=== PATIENT | female | born 2005 | race Hispanic/Latino ===

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

== ENCOUNTER 2024-03-26 20:56 | Emergency (ER) | payer OTHER, SELFPAY ==
--- OUTSIDE RECORDS SUMMARY | 2024-03-26 20:59 | XMS REPORT | Continuity of Care Document ---
Author Name Unknown Address [address] [place] [address] [facility] thconnect Address [address] [place] [address] Care Team Providers Care Scheduling Specialist Name Role Phone VIGIL, QUAN Krishnamurthy Primary Care Physician UnavailANDRADE Montez Attending Clinician Unavail able [facility] Clinician Unavailable Andrade Caldwell DO Attending Clinician Lab, Adc Fam Pob I Attending Clinician Unavailab Daisy Nix PA-C Attending Clinician DAISY HUBBARD Attending Clinician Unavailable Payers Payer Name Policy Type Policy Number Effective Date Expirati on Date Source Allergies, Adverse Reactions, Alerts Allergy Name Allergy Type Status Severity Reaction(s) Onset Date Inactive Date Treating Clinician Comments Source NO KNOWN ALLERGIE S Drug Class Active [facility] Social History Social Habit Start Date Stop Date Quantity Comments Source Sex Assigned At 2005 00:00:00 2005 00:00:00 [facility] Smoking Status Start Date Stop Date Source Unknown if ever smoked [facility] Vital Signs Vital Name Observation Time Observation Value Comments S leslie Heart rate 2020-04-04 21:00:00 97 /min [facility] Respiratory rate 2020-04-04 21:00:00 16 /min [facility] Oxygen saturation in Arterial blood by Pulse oximetry 2020-04-04 21:00:00 98 /min [facility] Procedures Procedure Date / Time Performed Performing Clinicia n Source SARS-COV-2 COVID-19 VACCINE,0.3ML,IM (PFIZER) 2021-01-15 22:09:44 Doctor Unassigned, [place] [facility] Encounters Start Date/Time End Date/Time Encounter Type Admission Type Attending Clinicians Care Facility Care Department Encounter ID Source 2023-06-23 17:01:01 2023-06-23 17:01:01 Outpatient [facility] [id number] Jaron Perez 2023-03-30 16:33:19 2023-03-30 16:33:19 Outpatient [facility] [id number] Jaron Perez 2021-01-15 13:35:00 2021-01-16 09:36:15 Outpatient Peng CALDWELL [facility] [id number] [facility] 2021-01-15 13:35:00 2021-01-15 13:40:00 Imm/Inj Visit Immunizatio Pina duran [facility] [employer] Andrade Caldwell [facility] Building 1..[id number] [facility] 2021-01-15 13:35:00 2021-01-15 13:35:00 Outpatient Peng CALDWELL [facility] [id number] [facility] 2020-12-25 16:20:00 2020-12-25 16:48:16 Outpatient Peng CALDWELL [facility] [id number] [facility] 2020-12-25 16:20:00 2020-12-25 16:20:00 [facility] [id number] [facility] 2020-04-04 18:12:33 2020-04-04 18:32:33 Laboratory Only Lab, [facility] [address] ..[id number] [facility] 2020-04-04 17:40:00 2020-04-04 17:40:00 Outpatient DAISY BOUDREAUX [facility] [id number] [facility]
[2024-03-26] MEDS ORDERED: ONDANSETRON 4 MG (ODT) TAB ONE (21:49)
[2024-03-26] MEDS ORDERED: ACETAMINOPHEN 500 MG TAB ONE (21:49)
[2024-03-27] MEDS ORDERED: DIPHENHYDRAMINE 50 MG/ML VIAL ONE (00:43)
[2024-03-27] MEDS ORDERED: METOCLOPRAMIDE 10 MG/2mL INJ ONE (00:43)
[2024-03-27] MEDS ORDERED: ONDANSETRON 4 MG/2 ML VIAL ONE (00:43)
[2024-03-27] MEDS ORDERED: FAMOTIDINE 20 MG/2 ML VIAL IV ONE (00:44)
[2024-03-27] MEDS ORDERED: NA CHLORIDE 0.9% 1,000 ML ONE (00:44)
[2024-03-27 00:59] LABS: Absolute Basophils 0.1 K/uL (0-0.5); Absolute Eosinophils 0.2 K/uL (0-0.5); Absolute Lymphocytes (CBC) 4.5 K/uL (0.7-4.9); Absolute Monocytes 0.6 K/uL (0.1-1.3); Absolute Neutrophil 3.7 K/uL (1.8-8.0); Basophils % 0.6 % (0-1.3); Eosinophils % 2.2 % (0-4.4); Hematocrit 38.7 % (36.0-45.0); Hemoglobin 12.7 g/dL (12.0-15.0); Lymphocytes % 49.5 % (15.3-44.8); MCH 27.5 pg (27.0-35.0); MCHC 32.9 g/dL (32.0-36.0); MCV 83.7 fL (80-100); MPV 7.6 fL (7.6-11.3); Neutrophils % 40.7 % (41.7-73.7); Nucleated Red Blood Cells % 0.1 % (0-0); Platelets 389 thou/uL (152-406); RBC Red Blood Cell Count 4.62 M/uL (3.86-4.86)
[2024-03-27 01:14] LABS: Albumin 4.2 g/dL (3.4-5.0); Anion Gap 9.6 mEq/L (5.0-15.0); Bilirubin Total 0.3 mg/dL (0.2-1.0); Globulin 4.3 g/dL (2.3-3.5); Potassium 3.6 mEq/L (3.5-5.1); Protein, Total 8.5 g/dL (6.4-8.2)
--- NOTE | 2024-03-27 01:47 | ER ---
Nurse's Notes [facility] Name: Barbie Quintero Age: 18 yrs Sex: Female : 2005 Arrival Date: 03/26/2024 Time: 20:56 Bed 5 Private MD: Diagnosis: Contusion of unspecified part of head, initial encounter;Concussion without loss of consciousness;Nausea with vomiting, unspecified Presentation: 03/26 21:43 Chief complaint: Patient states: Fell and hit her head on the corner of a metal chair cm10 around 12 today. Pt denies any LOC. Pt states that she has had 3 episodes of vomiting since. Coronavirus screen: Client denies travel out of the [place] in the last 14 days. Ebola Screen: Patient denies travel to an Ebola-affected area in the 21 days before illness onset. No symptoms or risks identified at this time. Initial Sepsis Screen: Does the patient meet any 2 criteria? No. Patient's initial sepsis screen is negative. Initial Sepsis Screen: Does the patient have a suspected source of infection? No. Patient's initial sepsis screen is negative. Risk Assessment: Do you want to hurt yourself or someone else? Patient reports no desire to harm self or others. Onset of symptoms was March 26, 2024. 21:43 Method Of Arrival: Ambulatory cm10 21:43 Acuity: WAN 3 cm10 Triage Assessment: 21:46 General: Appears in no apparent distress. comfortable, Behavior is calm, cooperative. cm10 Pain: Complains of pain in head. Neuro: No deficits noted. Level of Consciousness is awake, alert, obeys commands, Oriented to person, place, time, situation, Appropriate for age Reports headache. Respiratory: No deficits noted. Airway is patent Respiratory effort is even, unlabored, Respiratory pattern is regular, symmetrical. GI: Reports nausea, vomiting. Historical: - Allergies: 21:45 NKA; cm10 - PMHx: 21:45 Asthma; cm10 - PSHx: 21:45 None; cm10 - Immunization history:: Adult Immunizations up to date. - Infectious Disease History:: Denies. - Social history:: Smoking status: Patient/guardian denies using tobacco. Screenin/05 00:50 [facility] ED Fall Risk Assessment (Adult) History of falling in the last 3 months, lg3 including since admission Yes- single mechanical fall (1 pt) Confusion or Disorientation No (0 pts) Intoxicated or Sedated No (0 pts) Impaired Gait No (0 pts) Mobility Assist Device Used No (0 pt) Altered Elimination No (0 pt) Score/Fall Risk Level 0 - 2 = Low Risk Oriented to surroundings, Maintained a safe environment, Educated pt \T\ family on fall prevention, incl call for assistance when getting out of bed, Assessed \T\ reinforced patient's understanding of fall precautions. Abuse screen: Denies threats or abuse. Denies injuries from another. Nutritional screening: No deficits noted. Tuberculosis screening: No symptoms or risk factors identified. Assessment: 00:50 General: Appears in no apparent distress. comfortable, Behavior is calm, cooperative. lg3 Pain: Complains of pain in head Pain does not radiate. Pain currently is 5 out of 10 on a pain scale. Also complains of nausea. Neuro: No deficits noted. Felder Agitation-Sedation Scale (RASS): 0 - Alert and Calm Level of Consciousness is awake, alert, obeys commands, Oriented to person, place, time, situation, Reports headache. Cardiovascular: No deficits noted. Denies chest pain, shortness of breath, Capillary refill < 3 seconds Clubbing of nail beds is absent JVD is absent Patient's skin is warm and dry. Respiratory: No deficits noted. Airway is patent Respiratory effort is even, unlabored, Respiratory pattern is regular, symmetrical. GI: No deficits noted. Abdomen is round non-distended, Reports nausea, vomiting. : No deficits noted. No signs and/or symptoms were reported regarding the genitourinary system. EENT: No deficits noted. No signs and/or symptoms were reported regarding the EENT system. Derm: No deficits noted. No signs and/or symptoms reported regarding the dermatologic system. Skin is intact, is healthy with good turgor, Skin is dry, Skin is normal, Skin temperature is warm. Musculoskeletal: No deficits noted. No signs and/or symptoms reported regarding the musculoskeletal system. Circulation, motion, and sensation intact. Range of motion: intact in all extremities. 01:23 Reassessment: Patient appears in no apparent distress at this time. Patient and/or lg3 family updated on plan of care and expected duration. Pain level reassessed. Patient is alert, oriented x 3, equal unlabored respirations, skin warm/dry/pink. Patient states feeling better. Patient states symptoms have improved. Vital Signs: 03/26 21:43 BP 131 / 88; Pulse 92; Resp 18; Temp 97.8(TE); Pulse Ox 99% ; Weight 81.65 kg; Height 5 cm10 ft. 1 in. ; Pain 7/10; 03/27 01:23 BP 127 / 77; Pulse 85; Resp 16 S; Pulse Ox 99% on R/A; lg3 03/26 21:43 Body Mass Index 34.01 (81.65 kg, 154.94 cm) cm10 03/26 21:43 Pain Scale: Adult cm10 ED Course: 03/26 21:00 Patient arrived in ED. gm2 21:09 Kevin Ferrara PA is PHCP. cp 21:09 Gareth Foster MD is Attending Physician. cp 21:45 Triage completed. cm10 21:46 Arm band placed on right wrist. Patient placed in waiting room. cm10 22:34 CT Head C Spine In Process Unspecified. EDMS 03/27 00:50 Virginie Abbasi RN is Primary Nurse. lg3 00:50 Patient has correct armband on for positive identification. Placed in gown. Bed in low lg3 position. Call light in reach. Side rails up X 1. Client placed on continuous cardiac and pulse oximetry monitoring. NIBP monitoring applied. Door closed. Noise minimized. Warm blanket given. Pillow given. Family accompanied patient. 00:50 Initial lab(s) drawn, by ED staff, sent to lab. Urine collected: clean catch specimen, lg3 clear. Inserted saline lock: 20 gauge in left antecubital area, using aseptic technique. Blood collected. Flushed with 10 mL NS. 00:54 CBC with Diff Sent. lg3 00:54 CMP Sent. lg3 00:54 Lipase Sent. lg3 00:54 Test, Urine Sent. lg3 00:54 Urinalysis w/ reflexes Sent. lg3 01:46 Hernando Zarate MD is Referral Physician. cp 01:50 No provider procedures requiring assistance completed. IV discontinued, intact, lg3 bleeding controlled, No redness/swelling at site. Pressure dressing applied. Administered Medications: 03/26 21:53 Drug: Ondansetron PO 4 mg PO once Route: PO; cm10 03/27 00:54 Follow up: Response: No adverse reaction; No change in condition lg3 03/26 21:53 Drug: Acetaminophen PO 1000 mg PO once Route: PO; cm10 03/27 00:54 Follow up: Response: No adverse reaction lg3 00:53 Drug: Famotidine IVP 20 mg IVP once; dilute with 10 mL 0.9% NaCl; give over 2 minutes lg3 Route: IVP; Site: left antecubital; 01:49 Follow up: Response: No adverse reaction; Marked relief of symptoms lg3 00:53 Drug: NS 0.9% IV 1000 ml IV at 1 bolus Per protocol; to be given as a bolus over 60 lg3 minutes Route: IV; Rate: 1 bolus; Site: left antecubital; 01:49 Follow up: Response: No adverse reaction; IV Status: Completed infusion; IV Intake: lg3 1000ml 00:53 Drug: metoCLOPramide IVP 10 mg IVP once; over 1 to 2 minutes Route: IVP; Site: left lg3 antecubital; 01:49 Follow up: Response: No adverse reaction; Marked relief of symptoms lg3 00:53 Drug: diphenhydrAMINE IVP 25 mg IVP once Route: IVP; Site: left antecubital; lg3 01:49 Follow up: Response: No adverse reaction; Marked relief of symptoms lg3 00:53 Drug: Ondansetron IVP 4 mg IVP once; over 2 minutes Route: IVP; Site: left antecubital; lg3 01:49 Follow up: Response: No adverse reaction; Marked relief of symptoms lg3 Medication: 00:50 VIS not applicable for this client. lg3 Intake: 01:49 IV: 1000ml; Total: 1000ml. lg3 Outcome: 01:47 Discharge ordered by . cp 01:50 Discharged to home via wheelchair, with family, lg3 01:50 Condition: stable 01:50 Discharge instructions given to patient, Instructed on discharge instructions, follow up and referral plans. medication usage, Demonstrated understanding of instructions, follow-up care, medications, Prescriptions given X 1, 01:50 Patient left the ED. lg3 Signatures: Dispatcher [employer] EDMS Kevin Ferrara PA PA cp Able, Lacie, RN RN 3 Yaquelin Vences RN RN 10 Olivia Alfaro [facility]
--- NOTE | 2024-03-27 01:47 | EDPHYS ---
Physician Documentation [facility] Name: Barbie Quintero Age: 18 yrs Sex: Female : 2005 Arrival Date: 03/26/2024 Time: 20:56 Bed 5 Private MD: ED Physician Gareth Foster HPI: 03/26 21:55 This 18 yrs old Female presents to ER via Ambulatory with complaints of Fall cp Injury, Headache, Nausea/Vomiting. 21:55 Details of fall: The patient fell from an upright position, while attempting to sit in cp chair, patient reports falling back and striking head against metal chair. 21:55 Onset: The symptoms/episode began/occurred this afternoon. Associated injuries: The cp patient sustained injury to the head, contusion, pain, tenderness, neck injury, pain. Patient reports headache and vomiting 3 times since injury. Historical: - Allergies: 21:45 NKA; cm10 - PMHx: 21:45 Asthma; cm10 - PSHx: 21:45 None; cm10 - Immunization history:: Adult Immunizations up to date. - Infectious Disease History:: Denies. - Social history:: Smoking status: Patient/guardian denies using tobacco. ROS: 22:00 Cardiovascular: Negative for chest pain, palpitations, cp 22:00 Eyes: Negative for injury, pain, redness, and discharge, cp 22:00 Constitutional: Negative for body aches, chills, fever, poor PO intake, 22:00 Neck: Positive for tenderness, 22:00 Abdomen/GI: Positive for nausea and vomiting, Negative for abdominal pain, 22:00 Neuro: Positive for headache, 22:00 All other systems are negative, Exam: 22:05 Constitutional: The patient appears in no acute distress, alert, awake, non-toxic, well cp developed, well nourished, 22:05 Head/face: Noted is tenderness, that is moderate, of the left occipital area and left cp base of the skull, 22:05 Eyes: Periorbital structures: appear normal, Pupils: equal, round, and reactive to light and accomodation, Extraocular movements: intact throughout, Conjunctiva: normal, no exudate, no injection, Sclera: no appreciated abnormality, Lids and lashes: appear normal, bilaterally, 22:05 ENT: External ear(s): are unremarkable, Nose: is normal, Mouth: Lips: moist, Oral mucosa: moist, Posterior pharynx: Airway: no evidence of obstruction, patent, 22:05 Neck: C-spine: vertebral tenderness, that is mild, appreciated at C1 and C2, crepitus, is not appreciated, ROM/movement: limited range of motion, is not appreciated, Meningeal signs: are not present, nuchal rigidity, is not appreciated, 22:05 Chest/axilla: Inspection: normal, 22:05 Cardiovascular: Rate: normal, Rhythm: regular, 22:05 Respiratory: the patient does not display signs of respiratory distress, Respirations: normal, no use of accessory muscles, no retractions, labored breathing, is not present, Breath sounds: are clear throughout, no decreased breath sounds, no stridor, no wheezing, 22:05 Abdomen/GI: Inspection: abdomen appears normal, Palpation: abdomen is soft and non-tender, in all quadrants, 22:05 Back: pain, is absent, ROM is normal, 22:05 Neuro: Orientation: to person, place \T\ time. Mentation: is normal, Motor: moves all fours, strength is normal, Sensation: is normal, Gait: is steady, Vital Signs: 21:43 BP 131 / 88; Pulse 92; Resp 18; Temp 97.8(TE); Pulse Ox 99% ; Weight 81.65 kg; Height 5 cm10 ft. 1 in. ; Pain 7/10; 03/27 01:23 BP 127 / 77; Pulse 85; Resp 16 S; Pulse Ox 99% on R/A; lg3 03/26 21:43 Body Mass Index 34.01 (81.65 kg, 154.94 cm) cm10 03/26 21:43 Pain Scale: Adult cm10 MDM: 03/26 21:47 Medical Screening Exam initiated cp 03/27 01:46 Data reviewed: vital signs, nurses notes, lab test result(s), radiologic studies, CT cp scan, and as a result, I will discharge patient. 01:46 Differential diagnosis: closed head injury, contusion, fracture, concussion. I cp considered the following discharge prescriptions or medication management in the emergency department Medications were administered in the Emergency Department. See MAR. Counseling: I had a detailed discussion with the patient and/or guardian regarding the historical points, exam findings, and any diagnostic results supporting the discharge/admit diagnosis, lab results, radiology results, to return to the emergency department if symptoms worsen or persist or if there are any questions or concerns that arise at home. Response to treatment: the patient's symptoms have markedly improved after treatment, and as a result, I will discharge patient. Special discussion: Based on the patient's history, exam and DX evaluation, there is no indication for emergent intervention or inpatient TX. It is understood by the patient/guardian that if the SXs persist or worsen they need to return immediately for re-evaluation. 03/27 00:24 Order name: CBC with Diff; Complete Time: :44 cp 03/27 01:44 Interpretation: Normal except: RDW 16.0; BENJAMIN% 40.7; LYM% 49.5. cp 03/27 00:24 Order name: CMP; Complete Time: :44 cp 03/27 01:44 Interpretation: Reviewed. cp 03/27 00:24 Order name: Lipase; Complete Time: :44 cp 03/27 00:24 Order name: Test, Urine cp 03/27 00:24 Order name: Urinalysis w/ reflexes cp 11 21:53 Order name: CT Head C Spine cp 03/26 23:50 Order name: PO challenge; Complete Time: 01:18 cp 03/27 00:24 Order name: IV Saline Lock; Complete Time: 00:53 cp 03/27 00:24 Order name: Labs collected and sent; Complete Time: 00:53 cp Administered Medications: 03/26 21:53 Drug: Ondansetron PO 4 mg PO once Route: PO; [facility] 03/27 00:54 Follow up: Response: No adverse reaction; No change in condition lg3 03/26 21:53 Drug: Acetaminophen PO 1000 mg PO once Route: PO; 10 03/27 00:54 Follow up: Response: No adverse reaction lg3 00:53 Drug: Famotidine IVP 20 mg IVP once; dilute with 10 mL 0.9% NaCl; give over 2 minutes lg3 Route: IVP; Site: left antecubital; 01:49 Follow up: Response: No adverse reaction; Marked relief of symptoms lg3 00:53 Drug: NS 0.9% IV 1000 ml IV at 1 bolus Per protocol; to be given as a bolus over 60 lg3 minutes Route: IV; Rate: 1 bolus; Site: left antecubital; 01:49 Follow up: Response: No adverse reaction; IV Status: Completed infusion; IV Intake: lg3 1000ml 00:53 Drug: metoCLOPramide IVP 10 mg IVP once; over 1 to 2 minutes Route: IVP; Site: left lg3 antecubital; 01:49 Follow up: Response: No adverse reaction; Marked relief of symptoms lg3 00:53 Drug: diphenhydrAMINE IVP 25 mg IVP once Route: IVP; Site: left antecubital; lg3 01:49 Follow up: Response: No adverse reaction; Marked relief of symptoms lg3 00:53 Drug: Ondansetron IVP 4 mg IVP once; over 2 minutes Route: IVP; Site: left antecubital; lg3 01:49 Follow up: Response: No adverse reaction; Marked relief of symptoms lg3 Disposition: 19:27 Chart complete. cp 03/28 00:35 Co-signature as Attending Physician, Gareth Foster MD I agree with the assessment sp4 and plan of care. I reviewed the patient's care provided by the Advanced Practice Provider and agree with the diagnosis and treatment plan. Disposition Summary: 03/27/24 01:47 Discharge Ordered Notes: Location: Home cp Problem: new cp Symptoms: have improved cp Condition: Stable cp Diagnosis - Contusion of unspecified part of head, initial encounter cp - Concussion without loss of consciousness cp - Nausea with vomiting, unspecified cp Followup: cp - With: Hernando Zarate MD - When: 1 week - Reason: symptoms continue Discharge Instructions: - Discharge Summary Sheet cp - Concussion, Adult cp - Facial or Scalp Contusion cp - Head Injury, Adult cp - Nausea and Vomiting, Adult cp Forms: - Medication Reconciliation Form cp - Antibiotic Education cp - Prescription Opioid Use cp - Patient Portal Instructions cp - Leadership Thank You Letter cp - Work release form vc1 Prescriptions: - ondansetron 8 mg Oral Tablet,disintegrating - take 1 tablet ORAL route every 12 hours; 15 tablet; Refills: 0, Product cp Selection Permitted Signatures: Dispatcher [employer] EDMS Kevin Ferrara PA PA cp Able, Lacie, RN RN lg3 Gareth Foster MD MD sp4 Yaquelin Vences RN RN cm10 Corrections: (The following items were deleted from the chart) 03/26 21:53 21:53 Head C Spine MPR Wo Con+CT.RAD.BRZ ordered. EDMS EDMS 03/27 00:25 00:25 CBC+H.LAB.BRZ ordered. EDMS EDMS 00: 00:25 COMPREHENSIVE METABOLIC PANEL+C.LAB.BRZ ordered. EDMS EDMS 00: 00:25 LIPASE+C.LAB.BRZ ordered. EDMS EDMS 00: 00:25 Test, Urine+UC.LAB.BRZ ordered. EDMS EDMS 00:25 00:25 Urinalysis+U.LAB.BRZ ordered. EDMS EDMS 19:17 19:17 This 18 yrs old Female presents to ER via Ambulatory with complaints of cp Fall Injury, Headache, Nausea/Vomiting. cp
[2024-03-27 01:51] LABS: Specific Gravity > 1.030 (1.005-1.030); Sqamous Epithelial <5 /HPF (None Seen); Urine Bacteria <20 /HPF (<20); Urine Bilirubin NEGATIVE (Negative); Urine Blood 2+ (Negative); Urine Clarity Turbid (Clear); Urine Color Yellow (Yellow); Urine Culture Reflex Order NOT NEEDED; Urine Glucose NEGATIVE (Negative); Urine Ketones TRACE (Negative); Urine Microscopic Reflex YN ORDER UMIC; Urine Mucus 3+ /HPF (None Seen); Urine Nitrite NEGATIVE (Negative); Urine Protein 1+ (Negative); Urine Urobilinogen Normal (Normal); Urine WBC <5 /HPF (<5); Urine pH 6.5 (5.0-7.0)
[2024-03-27 01:52] LABS: Specific Gravity > 1.030 (1.005-1.030)
[2024-03-27 03:02] VITALS: TEMP 97.8; O2SAT 99
[2024-03-27 03:03] VITALS: BP 127/77
--- NOTE | 2024-03-27 03:44 | RAD REPORT ---
EXAM DESCRIPTION: CT HEAD AND CERVICAL SPINE WITHOUT CONTRAST CLINICAL HISTORY: Vomiting and headache. COMPARISON: None Available TECHNIQUE: Contiguous axial images of head and cervical spine were obtained followed by reconstruction images. T his exam was performed according to our departmental dose-optimization program, which includes automated exposure control, adjustment of the mA and/or kV according to patient size and/or use of it erative reconstruction technique. FINDINGS: There is no acute intracranial hemorrhage. Ventricular system is within normal limits. Several images are degraded by artifact. There is no skull fracture. Prevertebral soft tissues are within normal limits. There is no acute fracture or subluxation of the cervical spine. IMPRESSION: 1. No acute intracranial abnormalities. 2. No acute fracture or subluxation of the cervical spine. Electronically signed by: David Jones MD 03/27/2024 12:53 AM [facility] Due to temporary technical issues with the [employer] reporting system, reports are being iqra d by the in-house radiologist without review as a courtesy to ensure prompt reporting the interpreting radiologist is fully responsible for the content of the report. Transcribed Date/Time: 03/27/2024 3:43 AM
== END 2024-03-27 01:50 | disposition home or self-care (01) ==
LOC: ER 20:56
DX: S06.0X0A Concussion without loss of consciousness, initial encounter (principal); R11.2 Nausea with vomiting, unspecified
CPT/HCPCS: 36415; 70450; 72125; 80053; 81001; 81025; 83690; 85025; J1200; J2405; J2765; J7030; Q0162